=== PATIENT | female | born 1965 | race Two or more races ===

== ENCOUNTER 2017-01-12 09:39 | Emergency (ER) | payer BC ==
[~2017-01-12] VITALS: Ht 160 cm; Wt 45.8 kg
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
--- NOTE | 2017-01-12 10:18 | NUR ---
CALLED RADIOLOGY FOR XRAY. Addendum: 01/12/17 at 1026 by YAMILETH 1005-PT TAKEN FOR XRAY.
--- NOTE | 2017-01-12 11:15 | NUR ---
Patient discharged to home in stable condition. Written and verbal after care instructions given. Patient verbalizes understanding of instruction. Pt ambulatory with a steady gait.
[2017-01-12 11:25] VITALS: BP 130/69
== END 2017-01-12 11:25 | disposition home or self-care (01) ==
LOC: ER 09:42
DX: S80.02XA Contusion of left knee, initial encounter (principal); S70.02XA Contusion of left hip, initial encounter; S20.212A Contusion of left front wall of thorax, initial encounter; Z88.6 Allergy status to analgesic agent; F32.9 Major depressive disorder, single episode, unspecified; K21.9 Gastro-esophageal reflux disease without esophagitis; V43.52XA Car driver injured in collision with other type car in traffic accident, initial encounter; Y93.89 Activity, other specified; Y92.488 Other paved roadways as the place of occurrence of the external cause; Y99.8 Other external cause status
CPT/HCPCS: 71020; 73503; 73562; 99284; A4606; 73510-TC; Z7610

== ENCOUNTER 2025-01-18 20:36 | Inpatient (IN) | payer BC, OTHER ==
[~2025-01-18] VITALS: Ht 160 cm; Wt 50.3 kg
[2025-01-18 21:46] LABS: BASOPHILS % (AUTO) 0.2 % (0.0-2.0); EOSINOPHILS # (AUTO) 0.1 K/uL (0.0-0.7); HEMATOCRIT 39 % (33-45); HEMOGLOBIN 13.4 g/dL (11.5-14.8); LYMPHOCYTES # (AUTO) 1.2 K/uL (0.8-4.8); LYMPHOCYTES % (AUTO) 15.6 % (20.0-44.0); MEAN CORPUSCULAR HEMOGLOBIN 33 PG (26.0-33.0); MEAN CORPUSCULAR HGB CONC 34 g/dl (31.0-36.0); MEAN CORPUSCULAR VOLUME 95 fL (82-100); MONOCYTES # (AUTO) 0.3 K/uL (0.1-1.30); MONOCYTES % (AUTO) 4.4 % (2.0-12.0); NEUTROPHILS % (AUTO) 78.8 % (43.0-81.0); PLATELET COUNT (AUTO) 200 K/uL (150-450); RED BLOOD CELL COUNT(AUTO) 4.12 MIL/uL (4.0-5.2); RED CELL DISTRIBUTION WIDTH 12.7 % (11.5-15.0); WHITE BLOOD COUNT (AUTO) 7.6 K/uL (4.3-11.0)
[2025-01-18 21:54] LABS: CREATININE 0.9 mg/dL (0.6-1.3); POTASSIUM 4.2 mmol/L (3.5-5.1)
[2025-01-18 22:00] LABS: INR 0.96 (0.91-1.10); PARTIAL THROMBOPLASTIN TIME 23.6 SEC (24.3-34.3); PROTHROMBIN TIME 10.2 SECS (9.2-11.1)
[2025-01-18] MEDS ORDERED: Z GUARD REMEDY 4 OZ OINT TP PRN (23:30)
[2025-01-18] MEDS ORDERED: ACETAMINOPHEN 325 MG TABLET PO PRN (23:30)
[2025-01-18] MEDS ORDERED: MORPHINE SULFATE INJ 2 MG/ML DISP.SYRIN IV PRN (23:30)
[2025-01-18] MEDS ORDERED: MAGNESIUM HYDROXIDE 30 ML UDC PO PRN (23:30)
[2025-01-18] MEDS ORDERED: ONDANSETRON HCL/PF 4 MG/2 ML VIAL IVP PRN (23:30)
[2025-01-18 23:37] VITALS: BP 104/59; TEMP 98.4; O2SAT 97
[2025-01-19] VITALS: BP 104/59; TEMP 98.4; O2SAT 97
[2025-01-19] MEDS: IV D5/0.45 NACL 1,000 ML IV PRN (00:51)
[2025-01-19] MEDS: PANTOPRAZOLE 40 MG TABLET.DR PO SCH (07:30)
[2025-01-19 07:34] LABS: APPEARANCE,URINE CLEAR (CLEAR); BILIRUBIN,URINE NEGATIVE (NEGATIVE); BLOOD, URINE TRACE-INTA Ery/uL (NEGATIVE); COLOR,URINE YELLOW (YELLOW); KETONES,URINE 1+ mg/dL (NEGATIVE); LEUKOCYTE ESTERASE ,URINE NEGATIVE (NEGATIVE); NITRITE, URINE NEGATIVE (NEGATIVE); PROTEIN,URINE NEGATIVE (NEGATIVE); UGLUCOSE NEGATIVE (NEGATIVE); UROBILINOGEN,URINE 0.2 EU/dL (0.2)
[2025-01-19 07:40] LABS: ADD URINE CULTURE NO; BACTERIA,URINE Few /HPF (None Seen); RBC,URINE 0-2 /HPF (0-2); WBC,URINE 0-2 /HPF (0-3)
[2025-01-19 07:41] LABS: URIC ACID CRYSTALS,URINE Few /HPF (None Seen)
[2025-01-19 07:41] LABS: BASOPHILS % (AUTO) 0.2 % (0.0-2.0); EOSINOPHILS % (AUTO) 0.1 % (0.0-6.0); HEMATOCRIT 34 % (33-45); HEMOGLOBIN 11.9 g/dL (11.5-14.8); LYMPHOCYTES # (AUTO) 0.8 K/uL (0.8-4.8); LYMPHOCYTES % (AUTO) 9.7 % (20.0-44.0); MEAN CORPUSCULAR HEMOGLOBIN 33 PG (26.0-33.0); MEAN CORPUSCULAR HGB CONC 35 g/dl (31.0-36.0); MEAN CORPUSCULAR VOLUME 94 fL (82-100); MONOCYTES # (AUTO) 0.4 K/uL (0.1-1.30); MONOCYTES % (AUTO) 4.6 % (2.0-12.0); NEUTROPHILS # (AUTO) 6.6 K/uL (1.8-8.9); NEUTROPHILS % (AUTO) 85.4 % (43.0-81.0); PLATELET COUNT (AUTO) 172 K/uL (150-450); RED BLOOD CELL COUNT(AUTO) 3.63 MIL/uL (4.0-5.2); RED CELL DISTRIBUTION WIDTH 12.6 % (11.5-15.0); WHITE BLOOD COUNT (AUTO) 7.7 K/uL (4.3-11.0)
[2025-01-19 08:00] VITALS: BP 109/57; TEMP 99; O2SAT 98
[2025-01-19 08:31] LABS: CALCIUM, SERUM 8.3 mg/dL (8.5-10.1); CREATININE 0.6 mg/dL (0.6-1.3); PHOSPHORUS 3.3 mg/dL (2.5-4.9); POTASSIUM 3.7 mmol/L (3.5-5.1)
[2025-01-19 09:10] LABS: FERRITIN 130 ng/mL (8-388)
[2025-01-19 09:14] LABS: IRON, SERUM 32 ug/dl (50-175); TOTAL IRON BINDING CAPACITY 318 ug/dl (250-450)
[2025-01-19] MEDS ORDERED: hydrALAZINE HCL IV 20 MG VIAL IV PRN (10:00)
[2025-01-19] MEDS ORDERED: LABETALOL HCL IV 100MG VIAL IV PRN (10:00)
[2025-01-19] MEDS ORDERED: GLYCOPYRROLATE 0.2 MG/ML VIAL IV PRN (10:00)
[2025-01-19] MEDS ORDERED: ONDANSETRON HCL/PF 4 MG/2 ML VIAL IVP PRN (10:00)
[2025-01-19] MEDS ORDERED: MEPERIDINE HCL/PF 50 MG/ML DISP.SYRIN IV PRN (10:00)
[2025-01-19] MEDS ORDERED: FENTANYL PF 100MCG/2ML AMPUL IV PRN (10:00)
[2025-01-19] MEDS ORDERED: EPHEDRINE SULFATE IV 50MG VIAL IV PRN (10:00)
[2025-01-19] MEDS ORDERED: HYDROMORPHONE 1 MG/1 ML DISP.SYRIN IV PRN (10:00)
[2025-01-19] MEDS ORDERED: diphenhydrAMINE HCL 50 MG/ML VIAL IV PRN (10:00)
[2025-01-19] MEDS ORDERED: ANESTHESIA TRAY IN PYXIS 1 EA TRAY MC ONE (10:19)
[2025-01-19] MEDS ORDERED: VANCOMYCIN 1 GM VIAL ONE (10:20)
[2025-01-19] MEDS ORDERED: BUPIVACAINE 0.25% 75 MG/30 ML VIAL ONE (10:20)
[2025-01-19] MEDS ORDERED: MIDAZOLAM HCL 2 MG/2ML VIAL ONE (10:40)
[2025-01-19] MEDS ORDERED: ROCURONIUM BROMIDE 50 MG/5 ML ONE (10:40)
[2025-01-19] MEDS ORDERED: GABAPENTIN 300 MG CAPSULE PO ONE (11:22)
[2025-01-19] MEDS ORDERED: TRANEXAMIC ACID 1,000 MG/10 ML VIAL ONE (11:41)
[2025-01-19 15:18] LABS: HEMOGLOBIN 11.7 g/dL (11.5-14.8)
[2025-01-19 16:00] VITALS: BP 105/51; TEMP 97.9; O2SAT 100
[2025-01-19 20:00] VITALS: BP 91/58; TEMP 97.7; O2SAT 98
[2025-01-19] MEDS: CEFAZOLIN 2 GM in IV D5W 100 ML IV SCH (20:43)
[2025-01-20] MEDS ORDERED: ACETAMINOPHEN ES 500 MG TABLET PO ONE (06:30)
[2025-01-20 06:35] LABS: BASOPHILS % (AUTO) 0.1 % (0.0-2.0); EOSINOPHILS % (AUTO) 0.1 % (0.0-6.0); HEMATOCRIT 26 % (33-45); HEMOGLOBIN 8.9 g/dL (11.5-14.8); LYMPHOCYTES # (AUTO) 0.8 K/uL (0.8-4.8); LYMPHOCYTES % (AUTO) 11.6 % (20.0-44.0); MEAN CORPUSCULAR HEMOGLOBIN 32 PG (26.0-33.0); MEAN CORPUSCULAR HGB CONC 34 g/dl (31.0-36.0); MEAN CORPUSCULAR VOLUME 94 fL (82-100); MONOCYTES # (AUTO) 0.6 K/uL (0.1-1.30); MONOCYTES % (AUTO) 8.2 % (2.0-12.0); NEUTROPHILS # (AUTO) 5.5 K/uL (1.8-8.9); PLATELET COUNT (AUTO) 140 K/uL (150-450); RED BLOOD CELL COUNT(AUTO) 2.75 MIL/uL (4.0-5.2); RED CELL DISTRIBUTION WIDTH 12.7 % (11.5-15.0); WHITE BLOOD COUNT (AUTO) 6.9 K/uL (4.3-11.0)
[2025-01-20 07:00] LABS: CALCIUM, SERUM 7.9 mg/dL (8.5-10.1); CREATININE 0.7 mg/dL (0.6-1.3); MAGNESIUM 2.1 mg/dL (1.8-2.4); PHOSPHORUS 2.9 mg/dL (2.5-4.9); POTASSIUM 3.9 mmol/L (3.5-5.1)
[2025-01-20 08:00] VITALS: BP 98/53; TEMP 98.2; O2SAT 98
[2025-01-20] MEDS ORDERED: GABAPENTIN 300 MG CAPSULE PO SCH (08:00)
[2025-01-20] MEDS: ACETAMINOPHEN W/ CODEINE#3 1 EA TABLET PO PRN (08:25)
[2025-01-20 08:30] VITALS: BP_SYST 104; BP_SYST 98; BP_DIAS 53; BP_DIAS 58; TEMP 97.5; TEMP 98.2; O2SAT 97; O2SAT 98
[2025-01-20] MEDS: ENOXAPARIN SODIUM 40 MG/0.4 ML DISP.SYRIN SQ SCH (08:30)
[2025-01-20] MEDS: SOD FERRIC GLUC 125 MG in IV NS 0.9% 100 ML IV SCH (15:16)
[2025-01-20 16:00] VITALS: BP 108/50; TEMP 99; O2SAT 98
[2025-01-20 16:44] VITALS: BP 108/50; TEMP 99; O2SAT 98
[2025-01-20 20:00] VITALS: BP_SYST 102; BP_SYST 123; BP_DIAS 50; BP_DIAS 82; TEMP 99.3; TEMP 99.5; O2SAT 97; O2SAT 99
[2025-01-21 07:20] LABS: BASOPHILS % (AUTO) 0.3 % (0.0-2.0); EOSINOPHILS % (AUTO) 0.1 % (0.0-6.0); HEMATOCRIT 23 % (33-45); LYMPHOCYTES # (AUTO) 0.9 K/uL (0.8-4.8); LYMPHOCYTES % (AUTO) 14.1 % (20.0-44.0); MEAN CORPUSCULAR HEMOGLOBIN 33 PG (26.0-33.0); MEAN CORPUSCULAR HGB CONC 35 g/dl (31.0-36.0); MEAN CORPUSCULAR VOLUME 95 fL (82-100); MONOCYTES # (AUTO) 0.6 K/uL (0.1-1.30); MONOCYTES % (AUTO) 9.8 % (2.0-12.0); NEUTROPHILS # (AUTO) 4.9 K/uL (1.8-8.9); NEUTROPHILS % (AUTO) 75.7 % (43.0-81.0); PLATELET COUNT (AUTO) 137 K/uL (150-450); RED BLOOD CELL COUNT(AUTO) 2.44 MIL/uL (4.0-5.2); RED CELL DISTRIBUTION WIDTH 12.3 % (11.5-15.0); WHITE BLOOD COUNT (AUTO) 6.5 K/uL (4.3-11.0)
[2025-01-21 07:41] LABS: CALCIUM, SERUM 8.5 mg/dL (8.5-10.1); CREATININE 0.7 mg/dL (0.6-1.3); MAGNESIUM 2.2 mg/dL (1.8-2.4); PHOSPHORUS 2.3 mg/dL (2.5-4.9); POTASSIUM 3.5 mmol/L (3.5-5.1)
[2025-01-21 08:30] VITALS: BP 108/65; TEMP 98.2; O2SAT 99
[2025-01-21] MEDS ORDERED: ENOX40DI SUBCUT (09:37)
[2025-01-21] MEDS ORDERED: FERR324T11 PO (09:37)
[2025-01-22] MEDS ORDERED: ACET-907 PO (09:54)
[2025-01-22] MEDS ORDERED: ACET1TAB23 PO (16:47)
[2025-01-22] MEDS ORDERED: TRAM50TA2 PO ×2 (17:01→17:07)
== END 2025-01-21 14:50 | disposition home or self-care (01) | DRG 482 ==
LOC: ER 20:38 → MED 22:49
PROVIDERS: ADMIT Nurse Practitioner Family; ATTEND Nurse Practitioner Family
PROC: 0QS606Z Reposition Right Upper Femur with Intramedullary Internal Fixation Device, Open Approach (ICD-10-PCS; principal; 2025-01-19 11:30)
DX: S72.141A Displaced intertrochanteric fracture of right femur, initial encounter for closed fracture (principal); W06.XXXA Fall from bed, initial encounter; Y92.003 Bedroom of unspecified non-institutional (private) residence as the place of occurrence of the external cause; K21.9 Gastro-esophageal reflux disease without esophagitis; M79.7 Fibromyalgia; Z66 Do not resuscitate; S72.21XA Displaced subtrochanteric fracture of right femur, initial encounter for closed fracture; F32.A Depression, unspecified; E78.5 Hyperlipidemia, unspecified; Z88.6 Allergy status to analgesic agent; M19.90 Unspecified osteoarthritis, unspecified site; F41.9 Anxiety disorder, unspecified; D64.9 Anemia, unspecified; Z90.49 Acquired absence of other specified parts of digestive tract; R79.89 Other specified abnormal findings of blood chemistry
CPT/HCPCS: 36415; 71045-TC; 72192-TC; 73502; 73552; 80048-TC; 80061-TC; 81001; 82728-TC; 83540-TC; 83735-TC; 84100-TC; 85025-TC; 85027-TC; 85730-TC; 86850-TC; 87081-TC; 93307-TC; 97110-TC; 97116-TC; 97530-TC; 97535-TC; A4223; A6209; A6253; C1713; G0378; J0690; J1100; J1650; J2250; J2405; J2704; J2916; J3010; J3370; J3490; J7030; J7040; J7050; J7060